=== PATIENT | male | born 1995 | race Two or more races ===

== ENCOUNTER 2017-05-10 17:04 | Emergency (ER) | payer OTHER ==
[~2017-05-10] VITALS: Ht 167.6 cm; Wt 70.3 kg
[2017-05-10] MEDS ORDERED: MORPHINE SULFATE 4 MG/ML SYRG ONE (19:35)
[2017-05-10] MEDS ORDERED: MORPHINE SULF INJ 2 MG/ML SYRINGE 1ML IV ONE (19:45)
[2017-05-10] MEDS ORDERED: ONDANSETRON HCL 4 MG/2 ML VIAL IV ONE ×2 (19:45→21:45)
[2017-05-10] MEDS ORDERED: ETOMIDATE (2MG/ML) 20ML VIAL IV ONE (20:40)
[2017-05-10] MEDS ORDERED: HYDROmorphone HCL 2 MG/ML VL IV ONE (21:45)
[2017-05-10 23:07] VITALS: BP 152/82
== END 2017-05-10 22:36 | disposition short-term general hospital (02) ==
LOC: ER 17:12
DX: S42.352A Displaced comminuted fracture of shaft of humerus, left arm, initial encounter for closed fracture (principal); W18.39XA Other fall on same level, initial encounter; Y93.89 Activity, other specified; Y92.89 Other specified places as the place of occurrence of the external cause; Y99.8 Other external cause status
CPT/HCPCS: 24505; 73030; 73060; 96374; 96375; 96376; 99152; 99291; J1170; J2270; J2405